=== PATIENT | male | born 1935 | race Caucasian/White ===

== ENCOUNTER 2019-07-18 11:11 | Outpatient (CLI) | payer MEDICARE, BC, SELFPAY ==
--- NOTE | 2019-07-18 11:50 | DI.RAD_ITS ---
EXAM: XR HIP RT COMPLETE AND AP PELVIS INDICATION: right lateral hip pain, h/o right TAMI in 2003, M25.551. COMPARISON: No exams were available for comparison TECHNIQUE: 2D digital imaging was performed. 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 No abnormal bony lucencies are seen. 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 IMPRESSION: Degenerative changes. Intact-appearing right hip prosthesis.
[2019-07-18 13:11] LABS: Hemoglobin A1C 6.6 % (4.5-6.2)
== END 2019-07-18 11:31 ==
PROVIDERS: PCP Internal Medicine; Visit Provider Nurse Practitioner Family
DX: M25.551 Pain in right hip (principal); Z96.641 Presence of right artificial hip joint; M16.12 Unilateral primary osteoarthritis, left hip; E11.9 Type 2 diabetes mellitus without complications
CPT/HCPCS: 36415; 73502; 83036

== ENCOUNTER 2019-08-15 02:11 | Outpatient (CLI) | payer MEDICARE, BC, SELFPAY ==
[2019-08-15 13:11] VITALS: BP 98/53; PULSE 60; RESP 20; TEMP 35.8; O2SAT 98
--- NOTE | 2019-08-15 14:22 | PDOC.PAIN_ITS ---
Pain Clinic Procedure Note Procedure Note Procedure Note: ULTRASOUND GUIDED RIGHT TROCHANTERIC BURSA INJECTION Pre-Procedural Evaluation: MICH RODRIGUEZ has been referred to the [facility] for an Ultrasound Guided right Trochanteric bursa injection for a chief complaint of right lateral hip pain. Pre-procedure Pain Score: 4/10 Patient was interviewed and the medical record reviewed. There were no medical, pharmacologic, radiographic, or other structural contraindications to preforming an ultrasound guided injection. Risks and expected side effects as well as potential benefits of the procedure were reviewed. The patient consent form was signed and witnessed. Standard time-out procedure was performed. The use of direct ultrasound visualization of the needle (rather than a non- guided injection) was required to increase patient safety by excluding inadvertent intramuscular, intratendinous, or intraneural needle placement and minimizing bleeding by avoiding osteochondral or vascular injury from the needle. Additionally, the increased accuracy of placement may increase clinical effectiveness and will allow higher diagnostic specificity when evaluating effectiveness of this injection. Procedure Description: The patient was placed in the left lateral recumbant position and automated blood pressure cuff and pulse oximeter applied for monitoring during the procedure and recorded in the medical record. Pre-injection ultrasound scanning of the area of interest was performed using linear transducer, identifying relevant anatomy, landmarks, and neurovascular structures allowing for optimal needle path. The site was then prepared in the usual sterile fashion, using thorough Chlorhexadine preparation of the skin and sterile draping. The same ultrasound transducer was then passed into the sterile field using sterile probe cover and sterile ultrasound gel. The injection target was again visualized. Skin and subcutaneous tissues were anesthetized with 2 mL of 1% Lidocaine. A Pajunk needle was placed under live ultrasound guidance, using an in-plane, to the target area. After visualization of the needle tip at the target area, a mixture of 2 mL 1% Lidocaine and 1 mL Depomedrol (40 mg/cc), totaling 3 mL of injectate was delivered after negative aspiration for blood. The needle was then flushed with 1 cc of 1% Lidocaine and removed. Ultrasound images were captured and stored for documentation purposes. Post-procedure Pain Score: 0/10 Vital signs were stable throughout the procedure and were as recorded in the docflowsheet by the nursing staff. Follow up plans and appointments were discussed with the patient.Post procedure instruction was given as documented in nursing documentation and having met discharge criteria, they were discharged from the [facility]. COMMENTS: If this procedure is found to be helpful, it can be completed up to 3 times per 12 months.
[2019-08-15] MEDS: methylPREDNISolone ACETATE 40 MG/ML VIAL IJ (14:35)
[2019-08-15 14:36] VITALS: BP 90/57; PULSE 60; RESP 18; O2SAT 98
== END 2019-08-15 02:31 ==
LOC: DI 14:33 → PC 08-16 13:11
PROVIDERS: PCP Internal Medicine; Visit Provider Preventive Medicine Occupational Medicine
DX: M25.551 Pain in right hip (principal)
CPT/HCPCS: 20610; 20611; 76942; J1030

== ENCOUNTER 2020-08-17 08:05 | Outpatient (CLI) | payer MEDICARE, BC, SELFPAY ==
[2020-08-17 08:29] LABS: Abs Immature Grans 0.03 10^3/uL (0.0-0.06); Absolute Basophil Count 0.03 10^3/uL (0.0-0.2); Absolute Eosinophil Count 0.19 10^3/uL (0.0-0.7); Absolute Lymphocyte Count 1.51 10^3/uL (1.2-3.4); Absolute Monocyte Count 0.71 10^3/uL (0.1-0.8); Absolute Neutrophil Count 6.39 10^3/uL (1.2-6.7); Basophils % 0.3; Eosinophils % 2.1; HCT 31.9 % (40.0-50.0); HGB 10.5 g/dL (13.5-17.5); Immature Grans % 0.3; MCH 32.1 pg (27.0-33.0); MCHC 32.9 % (32.0-36.0); MCV 97.6 fL (80-95); MPV 9.2 fL (8.0-11.0); Neutrophils % 72.3; Nucleated RBC 0 %; Platelet Count 203 10^3/uL (130-400); RBC 3.27 10^6/uL (4.36-5.78); RDW 13.5 % (11.8-14.1); RDW-SD 48.5 fL; WBC 8.86 10^3/uL (4.4-10.8)
[2020-08-17 08:52] LABS: ALT 13 U/L (16-63); AST 33 U/L (15-37); Albumin 3.2 g/dL (3.4-5.0); Alkaline Phosphatase 61 U/L (46-116); Anion Gap 9.5 mmol/L (3-11); BUN 28 mg/dL (7-18); Bilirubin, Total 0.8 mg/dL (0.2-1.0); CO2 24.5 mmol/L (21.0-32.0); CREATININE 1.81 mg/dL (0.70-1.30); Calcium 9.4 mg/dL (8.5-10.1); Chloride 101 mmol/L (98-107); FREE T4 1.79 ng/dL (0.76-1.46); Glucose 139 mg/dL (74-106); Magnesium 2.1 mg/dL (1.8-2.4); Potassium 4.3 mmol/L (3.5-5.1); Sodium 135 mmol/L (136-145); TSH 1.86 uIU/mL (0.36-3.74); Total Protein 7.9 g/dL (6.4-8.2)
== END 2020-08-17 08:25 ==
PROVIDERS: PCP Internal Medicine; Visit Provider Internal Medicine Medical Oncology
DX: E03.9 Hypothyroidism, unspecified (principal); C7A.8 Other malignant neuroendocrine tumors; C7B.8 Other secondary neuroendocrine tumors
CPT/HCPCS: 36415; 80053; 83735; 84439; 84443; 85025

== ENCOUNTER 2020-09-07 09:14 | Outpatient (CLI) | payer MEDICARE, BC, SELFPAY ==
[2020-09-07 09:35] LABS: Abs Immature Grans 0.51 10^3/uL (0.0-0.06); HCT 29.2 % (40.0-50.0); HGB 9.9 g/dL (13.5-17.5); MCH 32.5 pg (27.0-33.0); MCHC 33.9 % (32.0-36.0); MCV 95.7 fL (80-95); Nucleated RBC 0 %; Platelet Count 300 10^3/uL (130-400); RBC 3.05 10^6/uL (4.36-5.78); WBC 11.76 10^3/uL (4.4-10.8)
[2020-09-07 09:57] LABS: ALT 10 U/L (16-63); AST 24 U/L (15-37); Albumin 2.8 g/dL (3.4-5.0); Alkaline Phosphatase 62 U/L (46-116); Anion Gap 11.3 mmol/L (3-11); BUN 14 mg/dL (7-18); Bilirubin, Total 0.6 mg/dL (0.2-1.0); CO2 22.7 mmol/L (21.0-32.0); CREATININE 1.74 mg/dL (0.70-1.30); Chloride 99 mmol/L (98-107); Estimated GFR 37.57 (mL/min/1.73m2); FREE T4 1.63 ng/dL (0.76-1.46); Glucose 194 mg/dL (74-106); Magnesium 1.7 mg/dL (1.8-2.4); Potassium 3.7 mmol/L (3.5-5.1); Sodium 133 mmol/L (136-145); TSH 1.09 uIU/mL (0.36-3.74); Total Protein 7.1 g/dL (6.4-8.2)
[2020-09-07 10:04] LABS: Absolute Lymphocyte Count 2.35 10^3/uL (1.2-3.4); Absolute Monocyte Count 1.41 10^3/uL (0.1-0.8); Absolute Neutrophil Count 7.53 10^3/uL (1.2-6.7); Metamyelocytes % 2; Myelocytes % 2
[2020-09-07 10:05] LABS: Diff Comment Manual Differential; Polychromasia Present
== END 2020-09-07 09:34 ==
PROVIDERS: PCP Internal Medicine; Visit Provider Internal Medicine Medical Oncology
DX: C7A.8 Other malignant neuroendocrine tumors (principal); C7B.8 Other secondary neuroendocrine tumors; E03.9 Hypothyroidism, unspecified
CPT/HCPCS: 36415; 80053; 83735; 84439; 84443; 85025